=== PATIENT | female | born 2000 | race Caucasian/White ===

== ENCOUNTER 2018-09-13 16:39 | Inpatient (IN) ==
[2018-09-13 17:26] LABS: URINE SOURCE CLEAN CATCH
[2018-09-13 17:33] LABS: BILIRUBIN URINE NEGATIVE (NEGATIVE); BLOOD URINE LARGE (NEGATIVE); COLOR YELLOW; GLUCOSE URINE NEGATIVE (NEGATIVE); KETONE URINE TRACE mg/dL (NEGATIVE); LEUKOCYTES URINE LARGE (NEGATIVE); NITRITE URINE NEGATIVE (NEGATIVE); PROTEIN URINE 70 mg/dL (NEGATIVE); SP GRAVITY URINE 1.025; TURBIDITY URINE TURBID (CLEAR); UROBILINOGEN URINE 3 mg/dL (NORMAL)
[2018-09-13 17:43] LABS: UR EPITHELIAL CELLS >10 /HPF (<10); URINE BACTERIA 4+ /HPF; URINE RBC TNTC /HPF (<10); URINE WBC TNTC /HPF (<10)
[2018-09-13 17:50] LABS: URINE CASTS NONE SEEN; URINE CRYSTALS CA OXALATE PRESENT; URINE SMALL ROUND CELLS TRANS PRESENT; URINE YEAST NONE SEEN
[2018-09-13] MEDS ORDERED: ZOFRAN IM ONE (18:58)
[2018-09-13] MEDS ORDERED: LR 1,000 ML IV ONE ×2 (18:59→23:32)
[2018-09-13 19:17] LABS: BASO# 0.04 X1000 (0.0-0.2); BASO% 0.3 % (0.0-0.8); EOS# 0.22 X1000 (0.0-0.7); EOS% 1.6 % (0.0-10.0); HEMATOCRIT 45.9 % (37.0-47.0); HEMOGLOBIN 15.3 g/dL (12.0-16.0); IMM GRAN# 0.03 X1000 (0.0-0.04); IMM GRAN% 0.2 % (0.0-0.5); LYMPH# 1.55 X1000 (1.2-3.4); LYMPH% 11.3 % (20.5-51.1); MCH 28.4 PG (27-31); MCHC 33.3 g/dL (33-37); MCV 85.2 FL (81-99); MONO% 5.8 % (1.7-9.3); MPV 10.6 FL (7.4-10.4); NEUT# 11.08 X1000 (1.4-6.5); NEUT% 80.8 % (42.2-75.2); PLT 333 X1000 (130-400); RBC 5.39 XMIL (4.2-5.4); RDW 12.2 % (11.5-14.5); WBC 13.72 X1000 (4.8-10.8)
[2018-09-13 19:37] LABS: AGAP 11; ALB/GLOB RATIO 1.8; ALBUMIN 4.8 g/dL (3.5-5.0); ALKALINE PHOSPHATASE 56 U/L (32-104); BUN 9 mg/dL (8-22); CALCIUM 9.8 mg/dL (8.8-10.2); CHLORIDE 107 mmol/L (98-107); COSMO 278; CREATININE 0.8 mg/dL (0.5-0.9); ESTIMATED GFR > 60; GLUCOSE 129 mg/dL (70-104); GOT 17 U/L (10-30); GPT 8 U/L (10-36); POTASSIUM 3.5 mmol/L (3.5-5.1); SODIUM 139 mmol/L (136-145); TCO2 21 mmol/L (25-35); TOTAL BILIRUBIN 1.48 mg/dL (0.20-1.00); TOTAL PROTEIN 7.4 g/dL (6.3-8.3)
[2018-09-13] MEDS ORDERED: ROCEPHIN 2 GM in NS 50 ML IV ONE (21:02)
[2018-09-13] MEDS ORDERED: NS 1,000 ML IV ONE (21:52)
--- NOTE | 2018-09-13 22:24 | Diag Imaging Result Doc PS360 ---
EXAM: CT RENAL STONE SEARCH HISTORY: left flank pain ; acute pylenophritis TECHNIQUE: CT abdomen and pelvis without contrast COMPARISON: None. FINDINGS: The gallbladder is contracted. No calcified stones. No focal hepatic abnormality identified on this noncontrasted exam. Normal spleen, pancreas, and adrenal glands. There is a 2 mm left pelvic calcification believed to be in the distal ureter near the ureterovesical junction. There is mild left-sided hydronephrosis. No right-sided hydronephrosis. Normal aorta. No bowel obstruction although there is prominent stool in the distal colon. Normal appendix. There is a large right adnexal cyst measuring 7.6 cm. Trace fluid in the pelvis. Normal uterus. Urinary bladder is not distended IMPRESSION: 1.Small pelvic calcifications believed to be in the distal left ureter with mild hydronephrosis. Pyelonephritis cannot be diagnosed on this study without intravenous contrast. 2.Large right ovarian cyst This exam was performed using automated exposure control, adjustment of mA or kV according to patient size, and/or use of iterative reconstruction technique. Electronically signed by Lawrence Hodge 09/13/2018 10:21 PM
[2018-09-13] MEDS ORDERED: ZOFRAN IV ONE (22:53)
[2018-09-13] MEDS ORDERED: TORADOL IV ONE (23:31)
--- NOTE | 2018-09-13 23:31 | PROVIDER DOCUMENTATION ---
This chart was entered by Yaa Rliey Scribe, acting as scribe for Philip Goodwin MD. HPI-Female /OB/Breast - General Chief Complaint: Flank Pain Stated Complaint: L-SIDE PAIN Time Seen by Provider: 09/13/18 18:57 Source: reports: patient Allergies/Adverse Reactions: Patient Allergies Allergy/AdvReac Type Severity Reaction Status Date / Time No Known Drug Allergies Allergy Mild Unknown Verified 09/13/18 16:56 - History of Present Illness-Female /OB Nature of Presenting Problem: Pt is 18/F presenting to ED w/ L sided flank pain and vomiting that started around 4:30pm today. Pt has vomited 5 times just since then. Location of complaint: reports: left flank Radiation: reports: none Quality of Pain: reports: sharp, stabbing Severity in ED: reports: moderate Onset/Duration: reports: 1-3 hours ago Timing: reports: still present Context/Activities at Onset: reports: none Vaginal Symptoms: reports: no symptoms Vaginal Bleeding Amount: None Urinary Symptoms: reports: dysuria Leakage of Fluid: none Modifying Factors: improves with: nothing Associated Symptoms: reports: nausea, vomiting Similar Symptoms Previously?: No Recently seen or treated by another doctor?: No Review of Systems - Adult - REVIEW OF SYSTEMS - ADULT Constitutional: reports: chills Ears, Nose, Mouth & Throat: reports: no symptoms reported Cardiovascular: reports: no symptoms reported Respiratory: reports: no symptoms reported. denies: cough Gastrointestinal: reports: nausea, vomiting. denies: abdominal pain Genitourinary: reports: dysuria, flank pain Musculoskeletal: reports: no symptoms reported Integumentary: reports: no symptoms reported Neurological: reports: no symptoms reported. denies: dizziness/vertigo, headache/migraines Psychiatric: reports: no symptoms reported Endocrine: reports: no symptoms reported Hematologic/Lymphatic: reports: no symptoms reported Allergic/Immunologic: reports: no symptoms reported All Other Systems: Reviewed and Negative Past History - Adult - PAST MEDICAL HISTORY-ADULT Review of Records: reports: Old Records Reviewed, Nursing Assessment Review, Medications Reviewed, Social history reviewed & non-contributory. - SOCIAL HISTORY Smoking: denies, non-smoker Substance Use: none/never Alcohol Use Frequency: never Living Situation: family Physical Exam-General - PHYSICAL EXAM-ADULT Initial Vital Signs Reviewed: Yes - CONSTITUTIONAL General Appearance: alert, moderate distress - EYES Eyes: PERRL/EOMI (pt is vomiting and very shaky at time of exam) - HEAD, EARS, NOSE, MOUTH & THROAT HENMT: moist mucous membranes, normal ENT inspection - NECK Neck: non-tender, full range of motion, supple, normal inspection - RESPIRATORY Respiratory: lungs clear - CARDIOVASCULAR Cardiovascular: regular rate, rhythm - GASTROINTESTINAL (ABDOMEN) Abdominal Exam: normal bowel sounds, non tender, soft - LYMPHATIC Lymphatic: no adenopathy - MUSCULOSKELETAL Back Exam: normal inspection, no vertebral tenderness, CVA tenderness (left) Extremity: normal range of motion, non-tender, normal gait, normal inspection - SKIN Integumentary: normal color, warm/dry - NEUROLOGIC Neurologic: grossly normal - PSYCHIATRIC Psych/Mental Status: normal thought process, oriented x 3 Progress - PLAN OF CARE/RESULTS Progress/Plan/Lab Results: Vital Signs - 8 hr 09/13/18 16:49 09/13/18 21:06 Temperature 97.4 F L 98.0 F Pulse Rate 92 H 82 Respiratory Rate 20 18 Blood Pressure 122/65 118/57 O2 Sat by Pulse Oximetry 100 100 Bedside Urine ED: Urine Bedside Start: 09/13/18 21:09 Freq: ORDERED Status: Inactive Protocol: Activity Type Activity Date Activity User E-Sign Co-Sign Detail Recorded Client Recorded Date Recorded By Edit Status 09/13/18 21:35 [id number] Active=>Inactive [id number] 09/13/18 21:35 [id number] Laboratory Results - last 24 hr 09/13/18 09/13/18 09/13/18 17:13 17:13 19:05 WBC 13.72 H RBC 5.39 Hgb 15.3 Hct 45.9 MCV 85.2 MCH 28.4 MCHC 33.3 RDW Std Deviation 12.2 Plt Count 333 MPV 10.6 H Immature Gran % (Auto) 0.2 Neut % (Auto) 80.8 H Lymph % (Auto) 11.[address] [place] % (Auto) 5.8 Eos % (Auto) 1.6 Baso % (Auto) 0.3 Immature Gran # (Auto) 0.03 Neut # (Auto) 11.08 H Lymph # (Auto) 1.55 [place] # (Auto) 0.80 H Eos # (Auto) 0.22 Baso # (Auto) 0.04 Sodium Potassium Chloride Carbon Dioxide Anion Gap BUN Creatinine Estimated GFR/1.73 m2 BUN/Creatinine Ratio Glucose Calculated Osmolality Calcium Total Bilirubin AST ALT Alkaline Phosphatase Total Protein Albumin Globulin Albumin/Globulin Ratio Urine Source CLEAN CATCH Urine Color YELLOW Urine Turbidity TURBID Urine pH 6.0 Ur Specific [place] 1.025 Urine Protein 70 A Ur Glucose (Stick) NEGATIVE Ur Ketones (Stick) TRACE A Urine Blood LARGE A Urine Nitrite NEGATIVE Urine Bilirubin NEGATIVE Urobilinogen Dipstick 3 A Urine Leukocytes LARGE A Urine WBC (Auto) TNTC A Urine RBC (Auto) TNTC A U Epithel Cells (Auto) >10 A Urine Bacteria (Auto) 4+ Urine Crystals CA OXALATE PRESENT Small Round Cells TRANS PRESENT Urine Casts NONE SEEN Urine Yeast-like Cells NONE SEEN Urine Test NEGATIVE 09/13/18 19:05 WBC RBC Hgb Hct MCV MCH MCHC RDW Std Deviation Plt Count MPV Immature Gran % (Auto) Neut % (Auto) Lymph % (Auto) [place] % (Auto) Eos % (Auto) Baso % (Auto) Immature Gran # (Auto) Neut # (Auto) Lymph # (Auto) [place] # (Auto) Eos # (Auto) Baso # (Auto) Sodium 139 Potassium 3.5 Chloride 107 Carbon Dioxide 21 L Anion Gap 11 BUN 9 Creatinine 0.8 Estimated GFR/1.73 m2 > 60 BUN/Creatinine Ratio 11 Glucose 129 H Calculated Osmolality 278 Calcium 9.8 Total Bilirubin 1.48 H AST 17 ALT 8 L Alkaline Phosphatase 56 Total Protein 7.4 Albumin 4.8 Globulin 2.6 Albumin/Globulin Ratio 1.8 Urine Source Urine Color Urine Turbidity Urine pH Ur Specific [place] Urine Protein Ur Glucose (Stick) Ur Ketones (Stick) Urine Blood Urine Nitrite Urine Bilirubin Urobilinogen Dipstick Urine Leukocytes Urine WBC (Auto) Urine RBC (Auto) U Epithel Cells (Auto) Urine Bacteria (Auto) Urine Crystals Small Round Cells Urine Casts Urine Yeast-like Cells Urine Test Orders Category Date Time Status ED: Urine Bedside ORDERED Care 09/13/18 21:[address] RENAL STONE SEARCH [CT] Stat Exams 09/13/18 20:51 Completed BLOOD CULTURE [BLDCUL] Stat Lab 09/13/18 22:50 Ordered CBC WITH ELECTRONIC DIFF [HEME] Stat Lab 09/13/18 19:05 Completed COMPREHENSIVE METABOLIC PANEL [CHEM] Stat Lab 09/13/18 19:05 Completed LACTATE, PLASMA [CHEM] Stat Lab 09/13/18 22:50 Ordered TEST-URINE [PREG] Stat Lab 09/13/18 17:13 Completed URINALYSIS W/POSS RFLX CULT [URINALYSIS] Stat Lab 09/13/18 17:13 Completed URINE CULTURE [RM] Routine Lab 09/13/18 17:47 Received URINE MANUAL MICROSCOPIC [URINALYSIS] Stat Lab 09/13/18 17:13 Completed 0.9% Sodium Chloride Inj [Ns] 1,000 ml Med 09/13/18 21:52 Discontinued IV 999 mls/hr CefTRIAXONE [Rocephin] 2 gm Med 09/13/18 21:02 Discontinued 0.9% Sodium Chloride Inj [Ns] 50 ml IV NOW Lactated Ringers Inj [Lr] 1,000 ml Med 09/13/18 18:59 Discontinued IV 999 mls/hr Ondansetron [Zofran] Med 09/13/18 18:58 Discontinued 4 mg IM NOW ONE Ondansetron [Zofran] Med 09/13/18 22:53 Discontinued 4 mg IV NOW ONE Result Diagrams: 09/13/18 19:05 09/13/18 19:05 - CT/MRI 1 CT Study: Renal Stone Impression: Abnormal ( EXAM: CT RENAL STONE SEARCH HISTORY: left flank pain ; acute pylenophritis TECHNIQUE: CT abdomen and pelvis without contrast COMPARISON: None. FINDINGS: The gallbladder is contracted. No calcified stones. No focal hepatic abnormality identified on this noncontrasted exam. Normal spleen, pancreas, and adrenal glands. There is a 2 mm left pelvic calcification believed to be in the distal ureter near the ureterovesical junction. There is mild left-sided hydronephrosis. No right-sided hydronephrosis. Normal aorta. No bowel obstruction although there is prominent stool in the distal colon. Normal appendix. There is a large right adnexal cyst measuring 7.6 cm. Trace fluid in the pelvis. Normal uterus. Urinary bladder is not distended IMPRESSION: 1.Small pelvic calcifications believed to be in the distal left ureter with mild hydronephrosis. Pyelonephritis cannot be diagnosed on this study without intravenous contrast. 2.Large right ovarian cyst This exam was performed using automated exposure control, adjustment of mA or kV according to patient size, and/or use of iterative reconstruction technique. Electronically signed by Lawrence Hodge 10:21 PM 09/13/182220 Interpreting Physician: Lawrence Hodge MD Dictated Date/Time: 09/13/182217) - CONSULTS/PCP/HOSPITALIST Notification #1 *Consult/PCP/Hospitalist*: Dr. Potter Time Discussed: 23:31 Consult Disposition: Admit Departure - Departure Date of Disposition Decision: 09/13/18 Time of Disposition Decision: 23:31 DIAGNOSIS: Acute pyelonephritis Hydronephrosis Qualifiers: Hydronephrosis type: unspecified Qualified Code(s): N13.30 - Unspecified hydronephrosis Disposition: ADMITTED INPATIENT 09 Certified Medical Emergency: Emergent Condition: Serious - Critical Care Note This patient required my direct & personal management of CC.: No Attestation - Physician/ JUAN LUIS Attestation Patient care was provided by Advanced Practice Provider:: No The physician spent face to face time with patient:: Yes Advanced Practice Provider documentation review:: Supervising physician onsite and consulted in the evaluation and care of this patient. The physician did have a face to face encounter with the patient. This chart was documented by the indicated scribe, (Yaa Riley, [place]) and accurately reflects the services I performed and decisions made by me, Philip Goodwin MD, as attested by the provider's signature.
[2018-09-13] MEDS ORDERED: ZOFRAN IV PRN (23:38)
[2018-09-13] MEDS ORDERED: REGLAN IV ONE (23:58)
[2018-09-14] MEDS: NORCO-7.5 PO PRN ×2 (01:20→10:30)
[2018-09-14] MEDS ORDERED: ROCEPHIN 1 GM in NS 50 ML IV ONE (02:57)
[2018-09-14] MEDS ORDERED: ROCEPHIN ONE (03:00)
[2018-09-14] MEDS ORDERED: NS 50 ML ONE (03:00)
[2018-09-14] MEDS: NS 1,000 ML IV SCH ×3 (03:12→14:15)
--- NOTE | 2018-09-14 06:00 | HISTORY AND PHYSICAL ---
CHIEF COMPLAINT: Left side pain. HISTORY OF PRESENT ILLNESS: This is a 18-year-old female with no past medical history who comes in with left-sided flank pain into her back that started around 4:30 this afternoon. Since she arrived at the ER, she had 5 episodes of vomiting. She was noted on exam to have left CVA tenderness. While her laboratory data was grossly normal, she did have a mildly elevated white blood cell count. Her urine had greater than 10 epithelial cells but it was also leukocyte esterase positive with too numerous to count WBCs. She will be admitted for presumed pyelonephritis. PAST MEDICAL HISTORY: None to note. PREVIOUS SURGICAL HISTORY: Denies. SOCIAL HISTORY: No tobacco, alcohol or illicit drugs. FAMILY HISTORY: Mother who is at bedside denied any chronic illness in first- degree relatives. Denied history of coronary artery disease and cancer. ALLERGIES: No known drug allergies. HOME MEDICATIONS: No home medications. REVIEW OF SYSTEMS: Fourteen point review of systems conducted with the patient. Pertinent positives listed above in the HPI. All other systems reviewed and negative except for mild dysuria with urinating. PHYSICAL EXAMINATION: VITAL SIGNS: Temperature 98, pulse 82, respirations 18, blood pressure 118/57, oxygen saturation 100% on room air. GENERAL: Pleasant 18-year-old female lying in the ER stretcher. Mother at bedside. Patient is in no acute distress, alert and oriented times 3. HEENT: Head is atraumatic, normocephalic. Pupils equal, round, reactive to light. Extraocular eye movement intact. Sclerae are anicteric. Conjunctiva is pink. Oral mucosa is moist. NECK: Supple. No JVD. No thyromegaly. Trachea is midline. No cervical lymphadenopathy. CARDIAC: S1, S2 appreciated. No murmurs, gallops, rubs. LUNGS: Clear to auscultation bilaterally. No rhonchi, wheezes, rales. Symmetric rise and fall with respirations. ABDOMEN: Soft, nondistended, nontender. Bowel sounds present all 4 quadrants, normoactive. No pulsatile mass. No organomegaly. BACK: Left-sided CVA tenderness. No vertebral tenderness. EXTREMITIES: No clubbing, cyanosis, or edema. Two-plus pedal pulses bilaterally. GENITOURINARY: No bladder distention. Patient voids. Otherwise deferred. NEUROLOGICAL: Alert and oriented times 3. Cranial nerves II through XII grossly intact. DIAGNOSTIC DATA: Renal CT showed small pelvic calcification believed to be in the distal left ureter with mild hydronephrosis, large right ovarian cyst. This was a noncontrasted CT and could not rule out pyelonephritis. LABORATORY DATA: WBC 13.72. Chemistry panel within normal limits other than glucose of 129, total bilirubin 1.48. Urine: Leukocyte esterase positive with too numerous to count WBCs, 4-plus bacteria but it also had greater than 10 epithelial cells. ASSESSMENT AND PLAN: 1. Acute pyelonephritis. We will give Rocephin 1 g q.24 hours, [place] as needed for pain. Normal saline at 100 mL an hour. Urine culture is pending. 2. Nausea and vomiting, likely secondary to #1. We will give Zofran as needed. Further recommendations per patient clinical course. Dictated by VESTA Acosta for Sharath Potter MD I have performed a face to face diagnostic evaluation. Labs/ Xrays reviewed. Exam- chest clear; Back- left flank tenderness A/P Acute pyelonephritis- Admit, Iv fluids, and ABX. Dr. Potter cc: VESTA Acosta MD [facility]
[2018-09-14 06:21] LABS: BASO# 0.01 X1000 (0.0-0.2); BASO% 0.1 % (0.0-0.8); HEMATOCRIT 38.6 % (37.0-47.0); HEMOGLOBIN 12.7 g/dL (12.0-16.0); LYMPH# 1.31 X1000 (1.2-3.4); LYMPH% 13.8 % (20.5-51.1); MCH 28.3 PG (27-31); MCHC 32.9 g/dL (33-37); MCV 86.2 FL (81-99); MONO# 0.73 X1000 (0.11-0.59); MONO% 7.7 % (1.7-9.3); NEUT# 7.44 X1000 (1.4-6.5); NEUT% 78.4 % (42.2-75.2); PLT 268 X1000 (130-400); RBC 4.48 XMIL (4.2-5.4); RDW 12.3 % (11.5-14.5); WBC 9.49 X1000 (4.8-10.8)
[2018-09-14 06:43] LABS: AGAP 14; BUN 9 mg/dL (8-22); CALCIUM 8.5 mg/dL (8.8-10.2); CHLORIDE 111 mmol/L (98-107); COSMO 285; CREATININE 0.7 mg/dL (0.5-0.9); ESTIMATED GFR > 60; GLUCOSE 89 mg/dL (70-104); POTASSIUM 4.1 mmol/L (3.5-5.1); SODIUM 144 mmol/L (136-145); TCO2 19 mmol/L (25-35)
[2018-09-14 07:58] LABS: HEMOGLOBIN A1C 4.6 % (4.8-6.0)
--- NOTE | 2018-09-14 13:56 | PROGRESS NOTE ---
DATE: 09/14/2018 SUBJECTIVE: Patient reports not feeling nauseated although still complaining of left sided pain. OBJECTIVE: Vital Signs: Temperature 98.6 degrees, heart rate 80, respiratory rate 16, and blood pressure 117/70. O2 saturation 99% on room air. General: This is a 18-year- old female lying in bed in no acute distress. Cardiovascular: S1, S2 heard. No murmurs, gallops, or rubs. Regular rate and rhythm. Respiratory: Clear bilaterally to auscultation. No work of breathing or using accessory muscles. Abdomen: Soft, nontender to palpation. Bowel sounds present. No organomegaly. Left CVA tenderness noted. Extremities: No clubbing, cyanosis, or edema. Peripheral pulses present in both legs. Neurological: Patient alert and oriented x3. Moves 4 extremities. LABORATORY DATA: White cell count is unremarkable. BMP shows chloride 111 with carbon dioxide of 19. The urine culture is pending as well as the blood cultures. ASSESSMENT AND PLAN: 1. Acute pyelonephritis. Patient receiving Rocephin 1 g IV q.24 hours and also normal saline at 100 mL/hours as well. Pain medication as needed. Also nausea and vomiting is getting better. We will continue with Zofran. We will continue with the same management. cc: Preet Hernandez MD [facility]
[2018-09-14] MEDS: ROCEPHIN 1 GM in NS 50 ML IV SCH (22:42)
[2018-09-15 06:23] LABS: BASO# 0.04 X1000 (0.0-0.2); BASO% 0.5 % (0.0-0.8); EOS# 0.66 X1000 (0.0-0.7); EOS% 8.8 % (0.0-10.0); HEMATOCRIT 38.5 % (37.0-47.0); HEMOGLOBIN 12.5 g/dL (12.0-16.0); LYMPH# 2.31 X1000 (1.2-3.4); LYMPH% 30.7 % (20.5-51.1); MCH 28.3 PG (27-31); MCHC 32.5 g/dL (33-37); MCV 87.1 FL (81-99); MONO# 0.84 X1000 (0.11-0.59); MONO% 11.2 % (1.7-9.3); MPV 10.8 FL (7.4-10.4); NEUT# 3.67 X1000 (1.4-6.5); NEUT% 48.8 % (42.2-75.2); PLT 223 X1000 (130-400); RBC 4.42 XMIL (4.2-5.4); RDW 12.5 % (11.5-14.5); WBC 7.52 X1000 (4.8-10.8)
[2018-09-15 06:48] LABS: AGAP 9; BUN 8 mg/dL (8-22); CALCIUM 7.8 mg/dL (8.8-10.2); CHLORIDE 109 mmol/L (98-107); COSMO 273; CREATININE 0.6 mg/dL (0.5-0.9); ESTIMATED GFR > 60; GLUCOSE 79 mg/dL (70-104); POTASSIUM 3.7 mmol/L (3.5-5.1); SODIUM 138 mmol/L (136-145); TCO2 20 mmol/L (25-35)
[2018-09-15] MEDS: NORCO-7.5 PO PRN ×2 (11:02→18:09)
--- NOTE | 2018-09-15 14:18 | PROGRESS NOTE ---
DATE: 09/15/2018 SUBJECTIVE: Patient reports feeling fine eating okay, no nausea, vomiting. OBJECTIVE: Vitals: Temperature 98.1 degrees, heart rate 78, respiratory 14, blood pressure 117/71, O2 saturation 100%. General: This is a 18-year-old female lying in bed no acute distress. Cardiovascular: S1, S2 heard. No murmurs, gallops, or rubs. Regular rate and rhythm. Respiratory: Clear bilaterally to auscultation. No work of breathing or using accessory muscles. Abdomen: Soft, nontender to palpation, bowel sounds present, no organomegaly. Left CVA tenderness still noted. Extremities: No clubbing, cyanosis, edema. Peripheral pulses present in both legs. Neurologic: Patient alert oriented x3. Moves 4 extremities. LABORATORY DATA: White cell count 5.52, hemoglobin 12.5, hematocrit 28.5, platelets 223,000, normal BMP. Urine culture no pathogenic grow, blood culture no growth after 48 hours. ASSESSMENT/PLAN: Acute pyelonephritis, patient was feeling fine actually I was about to discharge this patient but patient started having muna hematuria. That is description that the nurse gave to me. At this time will continue with Rocephin, IV fluids, also nausea, vomiting is resolved so will consult urology, will do a renal ultrasound and will go from there. cc: Preet Hernandez MD
--- NOTE | 2018-09-15 14:47 | Diag Imaging Result Doc PS360 ---
EXAM: US RENAL 2 (RETROPER) COMPLETE HISTORY: hematuria TECHNIQUE: Renal ultrasound COMPARISON: CT from 09/13/2018 FINDINGS: The right kidney measures 10.7 x 5.5 x 3.9 cm. Normal renal echotexture and cortical thickness. No stone or hydronephrosis. No renal mass. The left kidney measures 11.3 x 4.9 x 5.1 cm. Normal renal echotexture and cortical thickness. Slight distention to the renal pelvis. No renal stone. No renal mass. 8 cm fluid collection in the pelvis. Although this may be the urinary bladder, this could also be the large right ovarian cyst seen on the recent CT. IMPRESSION: Mildly dilated left renal pelvis, otherwise normal renal ultrasound. Electronically signed by Lawrence Hodge 09/15/2018 2:45 PM
[2018-09-15] MEDS: NS 1,000 ML IV SCH (17:30)
[2018-09-15] MEDS: ROCEPHIN 1 GM in NS 50 ML IV SCH (23:31)
[2018-09-16] MEDS: NS 1,000 ML IV SCH ×2 (00:21→02:00)
[2018-09-16 05:42] VITALS: BP 117/77
[2018-09-16 06:39] LABS: BASO# 0.03 X1000 (0.0-0.2); BASO% 0.4 % (0.0-0.8); EOS# 1.14 X1000 (0.0-0.7); EOS% 16.4 % (0.0-10.0); HEMATOCRIT 38.8 % (37.0-47.0); HEMOGLOBIN 12.5 g/dL (12.0-16.0); LYMPH# 2.75 X1000 (1.2-3.4); LYMPH% 39.6 % (20.5-51.1); MCH 28.2 PG (27-31); MCHC 32.2 g/dL (33-37); MCV 87.4 FL (81-99); MONO% 8.6 % (1.7-9.3); NEUT# 2.42 X1000 (1.4-6.5); PLT 237 X1000 (130-400); RBC 4.44 XMIL (4.2-5.4); RDW 12.5 % (11.5-14.5); WBC 6.94 X1000 (4.8-10.8)
[2018-09-16 07:11] LABS: AGAP 10; BUN 7 mg/dL (8-22); CALCIUM 8.4 mg/dL (8.8-10.2); CHLORIDE 107 mmol/L (98-107); COSMO 275; CREATININE 0.6 mg/dL (0.5-0.9); ESTIMATED GFR > 60; GLUCOSE 82 mg/dL (70-104); POTASSIUM 3.4 mmol/L (3.5-5.1); SODIUM 139 mmol/L (136-145); TCO2 22 mmol/L (25-35)
--- NOTE | 2018-09-16 11:56 | DISCHARGE SUMMARY ---
ADMISSION DATE: 09/13/2018 DISCHARGE DATE: 09/16/2018 DISCHARGE DIAGNOSES: 1. Acute left pyelonephritis. 2. Nausea and vomiting, resolved. CONSULTATIONS: None. PROCEDURES: 1. Renal CT showed small pelvic calcification believed to be in the distal left ureter with mild hydronephrosis. 2. Pyelonephritis. 3. Large right ovarian cyst. 4. Renal ultrasound showed mildly dilated left renal pelvis. Otherwise, normal renal ultrasound. HISTORY OF PRESENT ILLNESS: This is a 18-year-old, female with unremarkable past medical history who came to the emergency department complaining of left-sided flank pain into the back that started the day of admission. She was vomiting. She had left CVA tenderness. Laboratory data confirmed urinary tract infection. The patient was admitted to the hospital for this condition. CT of the abdomen showed results, as above. Patient has been started on IV antibiotics, in this case Rocephin and IV fluids. The patient was feeling fine yesterday and she was about to be discharged, but she had one episode of hematuria. I kept her in the hospital one more day with antibiotics, IV fluids and we have done a renal ultrasound with results as above. Patient reports no more episodes of hematuria. Her urine is clear today. No kidney stone noted in the renal ultrasound. So at this point, she is going to be discharged in stable condition. DISCHARGE PHYSICAL EXAMINATION: Vitals: Temperature 97.9 degrees, heart rate 74, respiratory rate 16, blood pressure 117/77, O2 saturation 99% on room air. General: This is a 18-year-old female lying in bed, in no acute distress. HEENT: Head is normocephalic, atraumatic. Neck: No JVD noted. No carotid bruits. No lymphadenopathy. No thyromegaly. Cardiovascular: S1, S2 heard. No murmurs, gallops, or rubs. Regular rate and rhythm. Respiratory: Clear bilaterally to auscultation. No work of breathing or using accessory muscles. Abdomen: Soft, nontender to palpation. Bowel sounds present. No organomegaly. Mild CVA tenderness noted. Neurological: Patient alert and oriented x3. Moves 4 extremities. DISCHARGE DISPOSITION: 1. Home to self-care. 2. Follow up with her primary care physician, Dr. Irma Duke in a week. LIST OF MEDICATIONS: 1. Cefdinir 300 mg 1 tablet p.o. b.i.d. for 10 days. 2. [place] 7.5 mg 1 tablet p.o. every 6 hours as needed for pain. cc: Preet Hernandez MD
== END 2018-09-16 12:46 | disposition home or self-care (01) | DRG 690 ==
LOC: ED 16:39 → EDIPHOLD 16:40 → SUATTDRO 16:40 → 4N 09-14 07:44
PROVIDERS: ATTEND Internal Medicine
CPT/HCPCS: 74176; 76770; 80048; 80053; 81001; 81025; 83036; 83605; 85025; 87040; 87088; 96361; 96372; 96374; 96375; 96376; 99285; A9270; J0696; J1885; J2405; J2765; J7030; J7120